=== PATIENT | female | born 1960 | race Caucasian/White ===

== ENCOUNTER → 2016-08-13 | Outpatient (CLI) | payer BC ==
--- NOTE | 2016-08-13 16:32 | MAMMOGRAPHY REPORT ---
BILATERAL DIGITAL SCREENING MAMMOGRAM TOMOSYNTHESIS WITH CAD: 08/13/2016 CLINICAL HISTORY: Routine screening. Patient has no complaints. TECHNIQUE: Breast tomosynthesis in addition to standard 2D mammography was performed. Current study was also evaluated with a Computer Aided Detection (CAD) system. COMPARISON: Comparison is made to exams dated: 08/08/2015 mammogram, 08/02/2013 mammogram, 07/29/2012 m ammogram, 06/19/2011 mammogram, 10/10/2010 ultrasound - [facility], and 09/27/2008. BREAST COMPOSITION: The tissue of both breasts is extremely dense, which lowers the sensitivity of mammography. FINDINGS: There is a stable patchy metallic biopsy marker in the 12:00 right breast. The parenchyma l pattern is similar to prior exams. No new suspicious mass, architectural distortion or cluster of microcalcifications is seen. IMPRESSION: ACR BI-RADS CATEGORY 1: NEGATIVE There is no mammographic evidence of malignancy. A 1 year screening mammogram is recommended. The p atient will receive written notification of the results. Approximately 10% of breast cancers are not detected with mammography. A negative mammographic repor t should not delay biopsy if a clinically suggestive mass is present. Sruthi Adames M.D. ay/:08/13/2016 16:27:06 Infrastructure Project Manager: Azeem Grajeda M, [facility] letter sent: Normal 1/2 BI-RADS Code: ACR BI-RADS Category 1: Negative
== END | disposition home or self-care (01) ==
LOC: C.MAMM 08:10
PROVIDERS: ATTEND Obstetrics & Gynecology
DX: Z12.31 Encounter for screening mammogram for malignant neoplasm of breast (principal)

== ENCOUNTER → 2017-08-19 | Outpatient (CLI) | payer OTHER, BC ==
--- NOTE | 2017-08-19 13:03 | MAMMOGRAPHY REPORT ---
BILATERAL DIGITAL SCREENING MAMMOGRAM TOMOSYNTHESIS WITH CAD: 08/19/2017 CLINICAL HISTORY: Routine screening. TECHNIQUE: Breast tomosynthesis in addition to standard 2D mammography was performed. Current study was also evaluated with a Computer Aided Detection (CAD) system. COMPARISON: Comparison is made to exams dated: 08/13/2016 mammogram, 08/08/2015 mammogram, 08/04/2014 m ammogram, 08/02/2013 mammogram, 07/29/2012 mammogram, and 09/27/2010 mammogram - [facility]. BREAST COMPOSITION: The tissue of both breasts is extremely dense, which lowers the sensitivity of m ammography. FINDINGS: There is an incompletely visualized 4 mm nodular asymmetry versus mass in the far posterio r slightly inferior left breast on the MLO view (tomosynthesis slice 29/65), for which additional spo t compression tomosynthesis views and possible ultrasound are recommended. There is a stable karol-shaped biopsy marker clip in the 12:00 posterior right breast. A few scattered punctate microcalcifications. No other suspicious mass, architectural distortion or cluster of suspi cious microcalcifications is seen. IMPRESSION: ACR BI-RADS CATEGORY 0: INCOMPLETE EVALUATION: NEED ADDITIONAL IMAGING EVALUATION The incompletely visualized 4 mm nodular asymmetry versus mass in the far posterior slightly inferior left breast on the MLO view needs additional imaging evaluation. The patient will be called to schedule an appointment. Approximately 10% of breast cancers are not detected with mammography. A negative mammographic report should not delay biopsy if a clinically suggestive mass is present. Sruthi Adames M.D. ay/:08/19/2017 08:31:52 Gaming Table Operator: Aldo GONZALEZ(R)(M), [facility] letter sent: Addl Imaging 0 BI-RADS Code: ACR BI-RADS Category 0: Incomplete Evaluation: Need Additional Imaging Evaluation
== END | disposition home or self-care (01) ==
LOC: C.MAMM 07:16
PROVIDERS: ATTEND Obstetrics & Gynecology
DX: Z12.31 Encounter for screening mammogram for malignant neoplasm of breast (principal); N64.89 Other specified disorders of breast

== ENCOUNTER → 2017-08-28 | Outpatient (CLI) | payer OTHER, BC ==
--- NOTE | 2017-08-28 14:43 | MAMMOGRAPHY REPORT ---
UNILATERAL LEFT DIGITAL DIAGNOSTIC MAMMOGRAM TOMOSYNTHESIS: 08/28/2017 CLINICAL HISTORY: Callback from screening mammogram for left breast asymmetry. TECHNIQUE: Breast tomosynthesis in addition to standard 2D mammography was performed. Spot compress ion left MLO 2D and tomosynthesis images were obtained. COMPARISON: Comparison is made to exams dated: 08/19/2017 mammogram, 08/13/2016 mammogram, 08/08/2015 m ammogram, 08/04/2014 mammogram, 08/02/2013 mammogram, and 07/29/2012 mammogram - [facility] nter. BREAST COMPOSITION: The tissue of the left breast is extremely dense, which lowers the sensitivity o f mammography. FINDINGS: The previously described asymmetry seen within the left posterior breast on the MLO view ef faces to a baseline appearance on the additional spot compression view, and has the appearance of nor mal fibroglandular tissue on the tomosynthesis images. The asymmetry appears similar to multiple connie or exams on the additional view, including the 2015, 2009, and 2007 exams. The asymmetry is benign a nd compatible with normal fibroglandular tissue. No suspicious masses, architectural distortion, or other suspicious abnormality is seen on the additional images. IMPRESSION: ACR BI-RADS CATEGORY 2: BENIGN The left breast asymmetry effaces to a baseline appearance on the additional views, and is benign and compatible with normal fibroglandular tissue. There is no mammographic evidence of malignancy. A 1 year screening mammogram is recommended. The patient has been verbally notified of the results. Approximately 10% of breast cancers are not detected with mammography. A negative mammographic report should not delay biopsy if a clinically suggestive mass is present. Christine Cruz M.D. ah/:08/28/2017 08:21:29 Sql Data Analyst: Kasey Granger RT(R)(M), [facility] letter sent: Normal 1/2 BI-RADS Code: ACR BI-RADS Category 2: Benign
== END | disposition home or self-care (01) ==
LOC: C.MAMM 08:02
PROVIDERS: ATTEND Obstetrics & Gynecology
DX: N64.9 Disorder of breast, unspecified (principal)